=== PATIENT | female | born 1995 | race African-American/Black ===

== ENCOUNTER 2018-05-18 11:15 | Emergency (ER) | payer OTHER ==
[2018-05-18 11:55] LABS: #Basophils 0.1 thou/uL (0.0-0.2); #Eosinphils 0.6 thou/uL (0.0-0.7); #Lymphocytes 1.7 thou/uL (1.20-3.40); #Monocytes 0.8 thou/uL (0.11-0.59); #Neutrophils 9.1 thou/uL (1.40-6.50); %Basophils 0.7 % (0.0-1.0); %Eosinophils 5.1 % (0.0-10.0); %Lymphocytes 13.7 % (21.0-51.0); %Monocytes 6.7 % (0.0-10.0); %Neutrophils 73.8 % (42.0-75.0); Hemoglobin 12.9 g/dL (12.0-16.0); Mean Corpuscular HGB CONC 34.4 g/dL (32.0-36.0); Mean Corpuscular Hemoglobin 28.3 pg (27.0-31.0); Mean Corpuscular Volume 82.3 fL (78.0-98.0); Mean Platelet Volume 7.1 fL (7.4-10.4); Platelet Count 290 thou/uL (130-400); RBC Distribution Width 12.2 % (11.5-14.5); Red Blood Cell (RBC) Count 4.58 mill/uL (4.20-5.40); White Blood Cell (WBC) Count 12.4 thou/uL (4.8-10.8)
[2018-05-18 12:17] LABS: ALT (SGPT) 22 U/L (8-55); AST (SGOT) 23 U/L (5-34); Albumin 4.3 g/dL (3.5-5.0); Alkaline Phosphatase 47 U/L (40-150); Anion Gap 8 mmol/L (10-20); BUN (Urea Nitrogen) 7 mg/dL (7.0-18.7); Bilirubin, Total 0.5 mg/dL (0.2-1.2); Calc. Creatinine Clearance 0 mL/min (70-130); Calcium 8.9 mg/dL (7.8-10.44); Carbon Dioxide 31 mmol/L (22-29); Chloride 105 mmol/L (98-107); Estimated GFR-MDRD Greater than 90; Globulin 3.1 g/dL (2.4-3.5); Glucose 92 mg/dL (70-105); Lipase 41 U/L (8-78); Potassium 3.8 mmol/L (3.5-5.1); Protein, Total 7.4 g/dL (6.0-8.3); Sodium 140 mmol/L (136-145)
[2018-05-18 12:21] LABS: Bilirubin Negative (Negative); Blood, Urine Negative (Negative); Clarity CLEAR (Clear); Glucose, Urine (Dipstick) Negative (Negative); Leukocyte Negative (Negative); Nitrite Negative (Negative); Protein, Urine (Dipstick) Negative (Neg-Trace); Specific Gravity, Urine 1.018 (1.002-1.036)
[2018-05-18 12:24] LABS: Pregnancy Test - Urine (BHCG) Negative (Negative); Pregu Control Background? CLEAR/WHITE (CLR/WHITE); Pregu Control Bar Appear? YES (CONTROL BAR); Specific Gravity 1.018 (1.002-1.036)
[2018-05-18] MEDS ORDERED: ISOVUE-370 76%-LOCM 1 ML ONE (12:24)
--- NOTE | 2018-05-18 15:41 | CT ---
CT ABDOMEN AND PELVIS WITH IV CONTRAST: INDICATIONS: Abdominal pain. COMPARISON: None. FINDINGS: There are small bilateral pleural effusions. The liver, pancreas, adrenal glands, and kidneys appear within normal limits. The spleen is normal a ppearing. No free fluid or enlarged lymph nodes are evident. There is a mild amount of retained stool within the colon. The appendix is not definitely visualized; however, there are no definite signs for appendicitis. Th ere is a small amount of free fluid in the pelvis. There are small follicular cysts within the right adnexa. The bladder, rectum, and perirectal soft tissues are unremarkable. No definite acute osseous abnormality is evident. IMPRESSION: 1. Small bilateral pleural effusions. 2. Mild amount of retained stool within the colon. 3. The appendix is not identified. 4. Small amount of free fluid in the pelvis is nonspecific. Could be physiologic in nature. 5. Small follicular cyst within the right adnexa. POS: DAMION
== END 2018-05-18 17:07 | disposition home or self-care (01) ==
LOC: ERS 11:15
DX: N83.201 Unspecified ovarian cyst, right side (principal); J90 Pleural effusion, not elsewhere classified; F41.9 Anxiety disorder, unspecified
CPT/HCPCS: 36415; 74177; 80053; 81003; 81025; 83690; 85025

== ENCOUNTER 2018-09-24 13:58 | Day surgery (SDC) | payer OTHER ==
[2018-09-24 14:35] VITALS: BP 102/64; TEMP 99.2; BMI 25.8
[2018-09-24 15:34] LABS: Bilirubin Negative (Negative); Blood, Urine Negative (Negative); Clarity CLEAR (Clear); Glucose, Urine (Dipstick) Negative (Negative); Leukocyte Small (Negative); Nitrite Negative (Negative); Protein, Urine (Dipstick) Trace mg/dL (Neg-Trace); Specific Gravity, Urine 1.033 (1.002-1.036)
[2018-09-24 15:38] LABS: Bacteria/HPF 1+ HPF (None Seen); Hyaline Casts/LPF 4-6 HYALINE CAST LPF (0-3 Hyaline); Pathc Cast-AUWi Flag 1.45 (0-2.49); RBC/HPF 0-3 HPF (0-3)
--- NOTE | 2018-09-25 03:39 | SS ---
DATE OF ADMISSION: 09/24/2018 DATE OF DISCHARGE: 09/24/2018 Labor And Delivery Triage Note REGULAR PHYSICIAN: Juan A Saul MD EVALUATING PHYSICIAN: Hernan Vick MD CHIEF COMPLAINT: Back pain, decreased movement at home. HISTORY OF PRESENT ILLNESS: Ms. Gr is a 23-year-old black G3, P1, AB1 with an estimated date of confinement of 02/09/2019, who presents complaining of a several-day history of lower back pain and which she reports has decreased movement over the last 24 hours. She denies ruptured membranes, vaginal bleeding, change in bladder habits but she does report persistent constipation. She denies bleeding or leaking. Her care has been with Dr. Saul and has been reportedly uncomplicated. PAST OBSTETRICAL HISTORY: Vaginal delivery at term and a miscarriage in the first trimester. PAST MEDICAL HISTORY: Asthma. PAST SURGICAL HISTORY: None. CURRENT MEDICATIONS: vitamins and inhaler. ALLERGIES: NO KNOWN ALLERGIES. SOCIAL HISTORY: Denies tobacco, alcohol, or drug use. FAMILY HISTORY: Unremarkable. REVIEW OF SYSTEMS: Positive for constipation. Denies nausea, vomiting, fever, chills, ruptured membranes or vaginal bleeding. PHYSICAL EXAMINATION: VITAL SIGNS: Stable. She is afebrile. GENERAL: She is pleasant and in no acute distress. ABDOMEN: Soft, nontender, and gravid. There is no CVA tenderness. No vaginal bleeding is seen. heart tones are noted to be in the 140s. Urinalysis, specific gravity 1.033, negative blood, negative nitrites, small leukocyte esterase. On microscopic, there is 0-3 rbc's, 4-6 wbc's with 1+ bacteria. Forty-six squamous cells are seen. ASSESSMENT: 1. Twenty and 2/7th week intrauterine . 2. Suspected urinary tract infection. PLAN: The patient will be sent home with labor precautions and a prescription for Macrobid 1 p.o. b.i.d. for 7 days. Urine cultures been sent. Her precautions were reviewed with her and she will follow up with Dr. Saul as directed. Job ID: [id number]
== END 2018-09-24 16:04 | disposition home or self-care (01) ==
LOC: L&D/OP 13:58
PROVIDERS: ATTEND Obstetrics & Gynecology
DX: O36.8120 Decreased fetal movements, second trimester, not applicable or unspecified (principal); O99.89 Other specified diseases and conditions complicating pregnancy, childbirth and the puerperium; M54.5 Low back pain; O99.512 Diseases of the respiratory system complicating pregnancy, second trimester; J45.909 Unspecified asthma, uncomplicated; Z3A.20 20 weeks gestation of pregnancy
CPT/HCPCS: 81003; 81015; 87077; 87086; 99282

== ENCOUNTER 2019-10-05 14:26 | Outpatient (CLI) | payer MEDICAID, OTHER ==
--- NOTE | 2019-10-05 15:41 | ULT ---
EXAM: US Thyroid STANDARD PROVIDED CLINICAL HISTORY: Thyroid mass. COMPARISON: None FINDINGS: The right lobe of thyroid gland measures 4.4 cm x 1.4 cm x 1.5 cm and the left lobe measures 3.9 cm x 1.2 cm x 1.1 cm. Thyroid isthmus is thickened in AP dimensions measuring 0.5 cm. There is a complex slightly heterogeneous nodule seen involving the midportion right lobe of thyroid gland which includes an isoechoic nodular area with rim of increased echogenicity suggesting calcifications. This complex nodule measures 2.3 cm x 1 cm x 2.2 cm and partially extends into the th yroid isthmus.. No additional nodule is seen in either lobe of the thyroid gland. IMPRESSION: TI RADS level 4 nodule right lobe of thyroid gland, moderately suspicious nodule. According to ACR gu idelines, fine-needle aspiration is recommended.
== END 2019-10-05 14:27 | disposition home or self-care (01) ==
LOC: BICULT 14:26
PROVIDERS: ATTEND Family Medicine
DX: E07.9 Disorder of thyroid, unspecified (principal); E04.1 Nontoxic single thyroid nodule
CPT/HCPCS: 76536

== ENCOUNTER 2020-05-05 22:47 | Emergency (ER) | payer OTHER ==
[2020-05-05 23:38] LABS: #Basophils 0.1 thou/uL (0.0-0.2); #Eosinphils 0.1 thou/uL (0.0-0.7); #Lymphocytes 2.2 thou/uL (1.20-3.40); #Monocytes 0.7 thou/uL (0.11-0.59); #Neutrophils 10.3 thou/uL (1.40-6.50); %Basophils 0.7 % (0.0-1.0); %Lymphocytes 16.3 % (21.0-51.0); %Monocytes 5.2 % (0.0-10.0); %Neutrophils 76.9 % (42.0-75.0); Hemoglobin 12.3 g/dL (12.0-16.0); Mean Corpuscular HGB CONC 35.3 g/dL (32.0-36.0); Mean Corpuscular Hemoglobin 28.8 pg (27.0-31.0); Mean Corpuscular Volume 81.6 fL (78.0-98.0); Mean Platelet Volume 7.6 fL (7.4-10.4); Platelet Count 275 thou/uL (130-400); RBC Distribution Width 11.9 % (11.5-14.5); Red Blood Cell (RBC) Count 4.27 mill/uL (4.20-5.40); White Blood Cell (WBC) Count 13.4 thou/uL (4.8-10.8)
[2020-05-05 23:54] LABS: ALT (SGPT) Less than 7 U/L (8-55); AST (SGOT) 13 U/L (5-34); Albumin 4.3 g/dL (3.5-5.0); Alkaline Phosphatase 36 U/L (40-110); Anion Gap 13 mmol/L (10-20); BUN (Urea Nitrogen) 10 mg/dL (7.0-18.7); Bilirubin, Total 0.4 mg/dL (0.2-1.2); Calc. Creatinine Clearance 0 mL/min (70-130); Carbon Dioxide 23 mmol/L (22-29); Chloride 103 mmol/L (98-107); Estimated GFR-MDRD Greater than 90; Glucose 86 mg/dL (70-105); Potassium 3.8 mmol/L (3.5-5.1); Protein, Total 7.3 g/dL (6.0-8.3); Sodium 135 mmol/L (136-145)
[2020-05-06 00:07] LABS: Bacteria/HPF 1+ HPF (None Seen); Bilirubin Negative (Negative); Blood, Urine Trace (Negative); Clarity Clear (Clear); Glucose, Urine (Dipstick) Normal (Negative); Ketone, Urine 40 mg/dL (Negative); Leukocyte Negative Leu/uL (Negative); Nitrite Negative (Negative); Protein, Urine (Dipstick) 20 mg/dL (Neg-Trace); Specific Gravity, Urine 1.034 (1.002-1.036); Squamous Epithelial 0-3 HPF (0-3); Urobilinogen Normal mg/dL (Less than 2); WBC/HPF 0-3 HPF (0-3); pH, Urine 5.5 (5.0-9.0)
== END 2020-05-06 02:46 | disposition home or self-care (01) ==
LOC: ERS 22:47
DX: O99.89 Other specified diseases and conditions complicating pregnancy, childbirth and the puerperium (principal); R82.71 Bacteriuria; O99.511 Diseases of the respiratory system complicating pregnancy, first trimester; O99.341 Other mental disorders complicating pregnancy, first trimester; J45.909 Unspecified asthma, uncomplicated; F41.9 Anxiety disorder, unspecified
CPT/HCPCS: 36415; 80053; 81003; 81015; 84702; 85025

== ENCOUNTER 2020-07-26 21:55 | Emergency (ER) | payer OTHER ==
[2020-07-26 22:44] LABS: #Basophils 0.1 thou/uL (0.0-0.2); #Eosinphils 0.2 thou/uL (0.0-0.7); #Lymphocytes 1.9 thou/uL (1.20-3.40); #Monocytes 0.6 thou/uL (0.11-0.59); #Neutrophils 7.6 thou/uL (1.40-6.50); %Basophils 0.8 % (0.0-1.0); %Eosinophils 1.7 % (0.0-10.0); %Lymphocytes 18.2 % (21.0-51.0); %Monocytes 5.3 % (0.0-10.0); Hemoglobin 11.3 g/dL (12.0-16.0); Mean Corpuscular HGB CONC 35.4 g/dL (32.0-36.0); Mean Corpuscular Hemoglobin 29.3 pg (27.0-31.0); Mean Corpuscular Volume 82.6 fL (78.0-98.0); Mean Platelet Volume 7.5 fL (7.4-10.4); Platelet Count 252 thou/uL (130-400); RBC Distribution Width 11.8 % (11.5-14.5); Red Blood Cell (RBC) Count 3.88 mill/uL (4.20-5.40); White Blood Cell (WBC) Count 10.3 thou/uL (4.8-10.8)
[2020-07-26 23:02] LABS: Pregs Control Background? CLEAR/WHITE (CLR/WHITE); Pregs Control Bar Appear? YES (CONTROL BAR)
[2020-07-26 23:05] LABS: BHCG - Serum POSITIVE (NEGATIVE)
[2020-07-26 23:10] LABS: ALT (SGPT) Less than 7 U/L (8-55); AST (SGOT) 14 U/L (5-34); Albumin 3.7 g/dL (3.5-5.0); Alkaline Phosphatase 38 U/L (40-110); Anion Gap 12 mmol/L (10-20); BUN (Urea Nitrogen) 8 mg/dL (7.0-18.7); Bilirubin, Total 0.2 mg/dL (0.2-1.2); Calc. Creatinine Clearance 0 mL/min (70-130); Calcium 8.6 mg/dL (7.8-10.44); Carbon Dioxide 24 mmol/L (22-29); Chloride 104 mmol/L (98-107); Estimated GFR-MDRD Greater than 90; Globulin 3.2 g/dL (2.4-3.5); Glucose 81 mg/dL (70-105); Potassium 3.7 mmol/L (3.5-5.1); Protein, Total 6.9 g/dL (6.0-8.3); Sodium 136 mmol/L (136-145)
[2020-07-26] MEDS ORDERED: Mag-Al 1200 mg/1200 mg/30 ML UDCUP ONE (23:52)
[2020-07-26] MEDS ORDERED: Lidocaine Viscous Sol 2% 15 ml UD Cup ONE (23:52)
--- NOTE | 2020-07-27 07:08 | RAD ---
SINGLE VIEW CHEST: Date: 07/26/2020 COMPARISON: None. HISTORY: Left lateral chest pain. FINDINGS: Single view of the chest shows a normal sized cardiomediastinal silhouette. There is no evidence of c onsolidation, mass, or pleural effusion. The bones are unremarkable. IMPRESSION: No evidence of acute cardiopulmonary disease. POS: EAA
--- NOTE | 2020-07-29 12:44 | EKG ---
Test Reason : Blood Pressure : / mmHG Vent. Rate : 090 BPM Atrial Rate : 090 BPM P-R Int : 136 ms QRS Dur : 076 ms QT Int : 368 ms P-R-T Axes : 037 038 032 degrees QTc Int : 450 ms Normal sinus rhythm with sinus arrhythmia Normal ECG Confirmed by TOVA SCHREIBER ([id number]), avid editor TANMAY SILVESTRE ([id number]) on 07/29/2020 12:44:32 PM Referred By: Confirmed By:TOVA SCHREIBER
== END 2020-07-27 00:02 | disposition home or self-care (01) ==
LOC: ERS 21:55
DX: R07.9 Chest pain, unspecified (principal); J45.909 Unspecified asthma, uncomplicated
CPT/HCPCS: 36415; 71045; 80053; 84484; 84703; 85025; 93005

== ENCOUNTER 2020-08-23 16:34 | Emergency (ER) | payer OTHER ==
[2020-08-24 00:24] LABS: SARS-CoV-2 MS2 Positive; SARS-CoV-2 N Gene Negative; SARS-CoV-2 S Gene Negative; SARS-CoV-2 by NAA Not Detected (NotDetected); SARS-CoV-2 orf1ab Negative
== END 2020-08-23 17:30 | disposition home or self-care (01) ==
LOC: ERS 16:34
DX: O99.891 Other specified diseases and conditions complicating pregnancy (principal); Z20.828 Contact with and (suspected) exposure to other viral communicable diseases; O99.512 Diseases of the respiratory system complicating pregnancy, second trimester; J45.909 Unspecified asthma, uncomplicated
CPT/HCPCS: 87635; 99283; U0003

== ENCOUNTER 2022-06-17 12:39 | Outpatient (CLI) | payer MEDICARE, MEDICAID | END 2022-06-17 12:40 | disposition home or self-care (01) | LOC: BICULT 12:39 | PROVIDERS: ATTEND Family Medicine | DX: E04.1 Nontoxic single thyroid nodule (principal) | CPT/HCPCS: 76536 ==

== ENCOUNTER 2022-12-30 09:53 | Outpatient (CLI) | payer MEDICARE, OTHER | END 2022-12-30 09:54 | disposition home or self-care (01) | LOC: SCSMRI 09:53 | PROVIDERS: ATTEND Psychiatry & Neurology Neurology | DX: M48.061 Spinal stenosis, lumbar region without neurogenic claudication (principal); M51.36 Other intervertebral disc degeneration, lumbar region; M47.816 Spondylosis without myelopathy or radiculopathy, lumbar region | CPT/HCPCS: 72148 ==

== ENCOUNTER 2023-06-04 07:55 | Outpatient (CLI) | payer MEDICARE, MEDICAID ==
[2023-06-04] MEDS ORDERED: Magnevist 469MG/ML 20 ML VIAL ONE (11:38)
== END 2023-06-04 07:56 | disposition home or self-care (01) ==
LOC: BICMRI 07:55
PROVIDERS: ATTEND Psychiatry & Neurology Neurology
DX: M48.02 Spinal stenosis, cervical region (principal)
CPT/HCPCS: 72156

== ENCOUNTER 2024-01-13 08:36 | Outpatient (CLI) | payer MEDICARE, MEDICAID | END 2024-01-13 08:37 | disposition home or self-care (01) | LOC: BICULT 08:36 | PROVIDERS: ATTEND Family Medicine | DX: E04.2 Nontoxic multinodular goiter (principal); R10.2 Pelvic and perineal pain; R10.12 Left upper quadrant pain | CPT/HCPCS: 76536; 76700; 76856; 93976 ==

== ENCOUNTER 2024-09-15 11:51 | Emergency (ER) | payer MEDICARE ==
[2024-09-15 12:22] LABS: #Basophils 0.07 10x3/uL (0.0-0.2); %Basophils 0.5 % (0.0-1.0); %Eosinophils 3.8 % (0.0-10.0); %Lymphocytes 14.1 % (21.0-51.0); %Monocytes 5.6 % (0.0-10.0); %Neutrophils 75.7 % (42.0-75.0); Hematocrit 38.1 % (36.0-47.0); Hemoglobin 13.5 g/dL (12.0-16.0); Mean Corpuscular HGB CONC 35.4 g/dL (32.0-36.0); Mean Corpuscular Hemoglobin 28.8 pg (27.0-31.0); Mean Corpuscular Volume 81.2 fL (78.0-98.0); Mean Platelet Volume 9.3 fL (7.4-10.4); Platelet Count 318 10x3/uL (130-400); RBC Distribution Width 13.3 % (11.5-14.5); Red Blood Cell (RBC) Count 4.69 mill/uL (4.20-5.40)
[2024-09-15 12:39] LABS: BHCG - Serum Negative (NEGATIVE); Pregs Control Background? CLEAR/WHITE (CLR/WHITE); Pregs Control Bar Appear? YES (CONTROL BAR)
[2024-09-15 12:47] LABS: ALT (SGPT) 14 U/L (Less than 34); AST (SGOT) 22 U/L (11-34); Albumin 4.1 g/dL (3.1-4.5); Alkaline Phosphatase 40 U/L (40-110); Anion Gap 10 mmol/L (10-20); BUN (Urea Nitrogen) 11 mg/dL (7.0-18.7); Calc. Creatinine Clearance 0 mL/min (70-130); Carbon Dioxide 26 mmol/L (22-29); Chloride 107 mmol/L (98-107); Estimated GFR 124; Globulin 3.4 g/dL (2.4-3.5); Glucose 65 mg/dL (70-105); Lipase 35 U/L (8-78); Protein, Total 7.5 g/dL (6.0-8.3); Sodium 139 mmol/L (136-145)
[2024-09-15 15:56] LABS: Bilirubin Negative (Negative); Blood, Urine 3+ (Negative); CAUTI Indications for Culture < 2yrs of age; Glucose, Urine (Dipstick) Normal (Negative); Ketone, Urine Negative (Negative); Leukocyte 500 Leu/uL (Negative); Nitrite Negative (Negative); Protein, Urine (Dipstick) 10 mg/dL (Neg-Trace); RBC/HPF 21-50 HPF (0-3); Specific Gravity, Urine 1.012 (1.002-1.036); Squamous Epithelial 0-3 HPF (0-3); Urobilinogen Normal mg/dL (Less than 2); WBC/HPF Greater than 50 HPF (0-3)
[2024-09-15 16:00] LABS: Bacteria/HPF 1+ HPF (None Seen); Clarity Cloudy (Clear)
[2024-09-15 16:02] LABS: Urine Culture Reflex Yes Yes
== END 2024-09-15 16:26 | disposition home or self-care (01) ==
LOC: ERS 11:51
DX: N39.0 Urinary tract infection, site not specified (principal)
CPT/HCPCS: 36415; 76856; 80053; 81001; 83690; 84702; 84703; 85025; 86900; 86901; 87086; 93976; 96372

== ENCOUNTER 2025-03-20 05:43 | Emergency (ER) | payer OTHER ==
[2025-03-20 06:27] LABS: Bacteria/HPF None Seen HPF (None Seen); CAUTI Indications for Culture Pregnancy; Glucose, Urine (Dipstick) Normal (Negative); Leukocyte 500 Leu/uL (Negative); Protein, Urine (Dipstick) 70 mg/dL (Neg-Trace); RBC/HPF Greater than 50 HPF (0-3); Specific Gravity, Urine 1.019 (1.002-1.036); WBC/HPF Greater than 50 HPF (0-3)
[2025-03-20 06:28] LABS: Urine Culture Reflex Yes Yes
[2025-03-20] MEDS ORDERED: Acetaminophen 325 MG TAB ONE (06:43)
== END 2025-03-20 06:44 | disposition home or self-care (01) ==
LOC: ERS 05:43
DX: O23.41 Unspecified infection of urinary tract in pregnancy, first trimester (principal); N39.0 Urinary tract infection, site not specified; Z3A.08 8 weeks gestation of pregnancy
CPT/HCPCS: 81001; 87077; 87086; 99283